=== PATIENT | female | born 1990 | race Caucasian/White ===

== ENCOUNTER 2018-04-23 19:01 | Emergency (ER) | payer BC, OTHER ==
[2018-04-23 19:46] VITALS: BP 129/70
--- NOTE | 2018-04-23 20:32 | UC ---
Respiratory Complaint HPI - HPI Summary HPI Summary: The patient is a 27-year-old female who states she has not been feeling well for 2 days. She may be feverish at times. He has been having chills. She states she has had very low energy. His been in bed for the most part for the past 2 days. She has intermittent chest pressure and feels as though she has been been hyperventilating. She had nausea and vomiting 2 today. She denies any diarrhea. She denies any UTI symptoms. Over the past 12 months she had lost 60 pounds. 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 For much of the year she had no period. About a month ago she started control pills. She stated that she has had daily vaginal bleeding since the start of her control pills. The pain is usually mild although it can be heavy at times. - History of Current Complaint Chief Complaint: UCGeneralIllness Stated Complaint: CONGESTION, SHORTNESS OF BREATH, CHILLS Time Seen by Provider: 04/23/18 20:18 Hx Obtained From: Patient Hx Last Menstrual Period: 04/09/18 Onset/Duration: Gradual Onset, Lasting Days Timing: Constant Severity Initially: Mild Severity Currently: Moderate Pain Intensity: 6 Pain Scale Used: 0-10 Numeric Aggravating Factors: Nothing Alleviating Factors: Nothing Associated Signs And Symptoms: Positive: Fever, Chills - Allergies/Home Medications Allergies/Adverse Reactions: Allergies Allergy/AdvReac Type Severity Reaction Status Date / Time No Known Allergies Allergy Verified 04/23/18 19:40 Home Medications: Home Medications SUMAtriptan TAB* [Imitrex TAB*] 25 mg PO SEE INSTRUCTIONS PRN 04/23/18 [History Confirmed 04/23/18] PMH/Surg Hx/FS Hx/Imm Hx Previously Healthy: Yes - Surgical History Surgical History: None - Family History Known Family History: Positive: Hypertension, Other - thyroid issues and kidney stones common - Social History Alcohol Use: Occasionally Substance Use Type: None Smoking Status (MU): Never Smoked Tobacco - Immunization History Most Recent Influenza Vaccination: Not the 2014/2015 Season Review of Systems Constitutional: Fever - garth, Chills, Fatigue Skin: Negative Eyes: Negative ENT: Negative Respiratory: Shortness Of Breath Cardiovascular: Negative Gastrointestinal: Vomiting, Nausea Genitourinary: Other - decreased UOP, vaginal bleeding Motor: Decreased ROM Neurovascular: Negative Musculoskeletal: Negative Neurological: Headache - occiput Psychological: Anxious All Other Systems Reviewed And Are Negative: Yes Physical Exam Triage Information Reviewed: Yes Appearance: Well-Appearing, No Pain Distress, Well-Nourished Vital Signs: Initial Vital Signs Temp 98.3 F 04/23/18 19:42 Pulse 89 04/23/18 19:42 Resp 16 04/23/18 19:42 BP 129/70 04/23/18 19:42 Pulse Ox 100 04/23/18 19:42 Vital Signs Reviewed: Yes Eyes: Positive: Conjunctiva Clear ENT: Positive: Hearing grossly normal, Uvula midline. Negative: Nasal congestion, Nasal drainage, Tonsillar swelling, Tonsillar exudate, Trismus, Muffled voice, Hoarse voice, Dental tenderness Neck: Positive: Supple, Nontender, No Lymphadenopathy Respiratory: Positive: Lungs clear, Normal breath sounds, No respiratory distress, No accessory muscle use Cardiovascular: Positive: RRR, No Murmur Abdomen Description: Positive: Nontender, No Organomegaly. Negative: CVA Tenderness (R), CVA Tenderness (L) Bowel Sounds: Positive: Present Musculoskeletal: Positive: ROM Intact, No Edema Neurological: Positive: Alert Skin Exam: Normal UC Diagnostic Evaluation - Laboratory O2 Sat by Pulse Oximetry: 100 - normal/not hypoxic Diagnostic Studies Comment: UA >1.030 SG. uHCG (-) Respiratory Course/Dx - Differential Dx/Diagnosis Provider Diagnoses: dysfunctional vaginal bleeding. viral syndrome Discharge - Sign-Out/Discharge Documenting (check all that apply): Patient Departure All imaging exams completed and their final reports reviewed: No Studies - Discharge Plan Condition: Stable Disposition: HOME Prescriptions: Ondansetron TAB* [Zofran Tab*] 4 mg PO Q6H PRN #6 tab PRN Reason: Nausea Patient Education Materials: Fatigue (ED), Viral Syndrome (ED), Dysfunctional Uterine Bleeding (ED) Referrals: Roberta FORD,Gladys Cooper [Primary Care Provider] - 2 Days Additional Instructions: rest fluids recheck for new or worsening symptoms see your provider re your vaginal bleeding - Billing Disposition and Condition Condition: STABLE Disposition: Home
[2018-04-23] MEDS ORDERED: Ondansetron ODT TAB* 4 MG PO ONE (21:00)
[2018-04-24 10:43] LABS: ABS Basophils 0 10^3/ul (0-0.2); ABS Eosinophils 0 10^3/ul (0-0.6); ABS Lymphocytes 0.8 10^3/ul (1.0-4.8); ABS Monocytes 0.2 10^3/ul (0-0.8); ABS Neutrophils 9.4 10^3/ul (1.5-7.7); ABS Nucleated RBC 0 10^3/ul; Eosinophil % 0 % (0-6); Hematocrit 41 % (35-47); Hemoglobin 14.1 g/dl (12.0-16.0); Mean Corpuscular HGB Conc 35 g/dl (31-36); Mean Corpuscular Hemoglobin 33 pg (27-31); Mean Corpuscular Volume 95 fL (80-97); Mean Platelet Volume 8.6 fL (7.4-10.4); Nucleated Red Blood Cells % 0; Platelet Count 245 10^3/ul (150-450); Red Blood Count 4.28 10^6/ul (4.00-5.40); Red Cell Distribution Width 13 % (10.5-15); White Blood Count 10.5 10^3/ul (3.5-10.8)
[2018-04-24 10:56] LABS: EGFR Non-African American 95.6 (>60)
== END 2018-04-23 21:15 | disposition home or self-care (01) ==
LOC: UCCORT 19:01
DX: B34.9 Viral infection, unspecified (principal); N93.8 Other specified abnormal uterine and vaginal bleeding; R11.2 Nausea with vomiting, unspecified; R06.02 Shortness of breath; R09.81 Nasal congestion
CPT/HCPCS: 36415; 80053; 81003; 84443; 84702; 85025; 99212; A9270-GY; G0463

== ENCOUNTER 2018-05-24 14:43 | Emergency (ER) | payer BC ==
[2018-05-24 15:11] VITALS: BP 141/87
--- NOTE | 2018-05-24 15:32 | UC ---
Throat Pain/Nasal Leonidas HPI - HPI Summary HPI Summary: 6 day history of congestion and sore throat, with increasing left sinus pain last night and today. No fever. Has some cough and production, but no shortness of breath or chest pain. No hx of sinusitis or asthma. - History of Current Complaint Chief Complaint: UCGeneralIllness Stated Complaint: SINUS Time Seen by Provider: 05/24/18 15:20 Hx Obtained From: Patient Hx Last Menstrual Period: 04/30/18 ?: No Onset/Duration: Gradual Onset, Lasting Days Severity: Moderate Pain Intensity: 3 Cough: Productive Associated Signs & Symptoms: Positive: Sinus Discomfort - Epiglottits Risk Factors Epiglottis Risk Factors: Negative - Allergies/Home Medications Allergies/Adverse Reactions: Allergies Allergy/AdvReac Type Severity Reaction Status Date / Time No Known Allergies Allergy Verified 05/24/18 15:10 Home Medications: Home Medications Dm/Pseudoephed/Acetaminophen [Day-Time Cold-Flu Softgel] 1 each PO ONCE [History Confirmed 05/24/18] Norgestimate-Ethinyl Estradiol [Ortho-Cyclen 28 Tablet] 1 each PO DAILY [History Confirmed 05/24/18] PMH/Surg Hx/FS Hx/Imm Hx Previously Healthy: Yes - Surgical History Surgical History: Yes Surgery Procedure, Year, and Place: LASIX - Family History Known Family History: Positive: Hypertension, Other - thyroid issues and kidney stones common - Social History Occupation: Employed Full-time Lives: Alone Alcohol Use: Rare Substance Use Type: None Smoking Status (MU): Never Smoked Tobacco - Immunization History Most Recent Influenza Vaccination: Not the Season Review of Systems All Other Systems Reviewed And Are Negative: Yes Constitutional: Positive: Fatigue Skin: Positive: Negative Eyes: Positive: Negative ENT: Positive: Sore Throat, Ear Ache Respiratory: Positive: Cough Cardiovascular: Positive: Negative Gastrointestinal: Positive: Negative Genitourinary: Positive: Negative Motor: Positive: Negative Neurovascular: Positive: Negative Musculoskeletal: Positive: Negative Neurological: Positive: Negative Psychological: Positive: Negative Is Patient Immunocompromised?: No Physical Exam Triage Information Reviewed: Yes Appearance: Well-Appearing, No Pain Distress Vital Signs: Initial Vital Signs Temp 97.6 F 05/24/18 15:08 Pulse 84 05/24/18 15:08 Resp 15 05/24/18 15:08 BP 141/87 12/06/18 15:08 Pulse Ox 100 05/24/18 15:08 Eye Exam: Other - JUWAN, normal eye movements. Eyes: Positive: Conjunctiva Clear ENT: Positive: Pharyngeal erythema, Nasal congestion Neck: Positive: Supple, Nontender, No Lymphadenopathy Respiratory: Positive: Lungs clear, Normal breath sounds Cardiovascular: Positive: RRR, No Murmur Musculoskeletal Exam: Normal Neurological: Positive: Alert Psychological Exam: Normal Skin Exam: Normal Throat Pain/Nasal Course/Dx - Course Course Of Treatment: symptomatic treatment of sinusitis/URI - Differential Dx/Diagnosis Differential Diagnosis/HQI/PQRI: Laryngitis, Otitis Media, Pharyngitis, Sinusitis, Tonsillitis Provider Diagnosis: Sinusitis, acute Discharge - Sign-Out/Discharge Documenting (check all that apply): Patient Departure All imaging exams completed and their final reports reviewed: No Studies - Discharge Plan Condition: Stable Disposition: HOME Patient Education Materials: Rhinosinusitis (ED) Referrals: Roberta FORD,Gladys Cooper [Primary Care Provider] - Additional Instructions: The infection which you have is consistent with viral sinusitis, and treatment is symptomatic. Ensure increased rest and fluids. Use nasal saline spray ([place] spray) and/or steroid spray such as Floase spray 2 sprays to both nostrils once daily for control of symptoms. Use ibuprofen 600 to 800mg up to three times daily with food for control of pain. Follow up if you develop increasing shortness of breath or fever. - Billing Disposition and Condition Condition: STABLE Disposition: Home
== END 2018-05-24 15:44 | disposition home or self-care (01) ==
LOC: UCCORT 14:43
DX: J01.90 Acute sinusitis, unspecified (principal)
CPT/HCPCS: 99211; G0463